=== PATIENT | female | born 1975 | race Caucasian/White ===

== ENCOUNTER 2017-03-08 11:37 | Day surgery (SDC) | payer BC ==
[2017-03-08 13:07] LABS: Blood Urea Nitrogen 12 mg/dL (7-17)
[2017-03-08] MEDS ORDERED: VERSED IV ONE (13:27)
[2017-03-08] MEDS ORDERED: VERSED IV PRN (13:39)
[2017-03-08 15:37] VITALS: BP 137/79
--- NOTE | 2017-03-09 07:30 | Magnetic Resonance Report ---
MRI BRAIN WITH/WITHOUT CONTRAST: History: Brain tumor, meningioma. Comparison: None at this facility. Technique: Multiple T1 and T2 weighted images were obtained in multiple planes. Axial diffusion and gradient imaging was performed. Post contrast T1 images in two planes were obtained following IV gadolinium. Findings: A homogeneously enhancing extra axial mass is identified within the right side of the pre-pontine fossa. This mass measures 2.3 cm AP, 2.1 cm transverse and 2.3 cm craniocaudal. A dural tail is identified which is highly suggestive of a meningioma. This lesion has an intimate association with the apex of the right temporal bone and internal auditory canal. The mass extends up to the orifice of the internal auditory canal but does not appear to invade it. This lesion is in very close vicinity to the right cranial seventh/eighth nerve complex. There is also mass effect on the right side of the jose daniel with right to left midline shift measuring 3-4 mm. No abnormal parenchymal signal is demonstrated within the midbrain. The remaining brain parenchyma signal intensity and its ruggiero-white interface are normal on all sequences. No diffusion restriction, hemorrhage, or extra-axial fluid collection. Ventricular size is normal and symmetric. The fourth ventricle is midline. The paranasal sinuses and mastoid air cells are well aerated. Normal flow voids are identified in the appropriate vessels at the [place] of [place]. Impression: Extra-axial mass within the right side of the prepontine fossa consistent with a meningioma as outlined above. Acoustic neuroma or other cerebellopontine angle mass is thought less likely. There is mild mass effect on the midbrain but no abnormal parenchymal signal.
== END 2017-03-08 15:22 | disposition home or self-care (01) ==
LOC: OPU 11:37
PROVIDERS: ATTEND Specialist
DX: D32.0 Benign neoplasm of cerebral meninges (principal)
CPT/HCPCS: 36415; 70553; 82565; 84520; 96374; A9577; J2250